=== PATIENT | male | born 1995 | race Caucasian/White ===

== ENCOUNTER 2020-09-07 15:01 | Emergency (ER) | payer OTHER ==
[2020-09-07] MEDS ORDERED: AMOX/CLAV 875 MG/125 MG TABLET PO STA (15:14)
[2020-09-07] MEDS ORDERED: BUFFERED LIDOCAINE 10 ML SYRINGE SUBQ STA (15:14)
--- NOTE | 2020-09-07 15:15 | ED Physician Documentation ---
PD HPI OPHTHO - Stated complaint Stated Complaint: RIGHT EYE SWELLING - Chief complaint Chief Complaint: Heent - History obtained from History obtained from: Patient (He noticed a pimple in the right eyebrow a couple days ago which is since progressed and now the whole area is swollen and slightly painful. No fevers. No visual deficit.) Review of Systems Constitutional: reports: Reviewed and negative Eyes: reports: Reviewed and negative Ears: reports: Reviewed and negative PD PAST MEDICAL HISTORY - Present Medications Home Medications: Ambulatory Orders Medication Instructions Recorded Confirmed Amox/Clav 875/125 [Augmentin] 1 each PO Q12H #14 tablet 09/07/20 - Allergies Allergies/Adverse Reactions: Allergies Allergy/AdvReac Type Severity Reaction Status Date / Time No Known Drug Allergies Allergy Verified 09/07/20 15:10 PD ED PE NORMAL - Vitals Vital signs reviewed: Yes - General General: Alert and oriented X 3, No acute distress - HEENT HEENT: PERRL, EOMI, Other (The right eyebrow is cellulitic with some swelling and edema going down to the top lid. The globe itself appears normal. There is at tender slightly fluctuant area consistent with a small pustule.) - Neck Neck: Supple, no meningeal sign, No bony TTP - Neuro Neuro: Alert and oriented X 3, Normal speech Results - Vitals Vitals: Vital Signs - 24 hr 09/07/20 15:08 Temperature 36.3 C L Heart Rate 82 Respiratory 16 Rate Blood Pressure 135/79 H O2 Saturation 100 Oxygen O2 Source Room air Procedures - Abscess I&D (location) R eyelid Preparation: Alcohol, Lidocaine 1% Incision: Needle aspiration, Purulent drainage Departure - Departure Disposition: Home, Self Care Clinical Impression: Periorbital cellulitis of right eye Condition: Good Record reviewed to determine appropriate education?: Yes Instructions: ED Cellulitis Facial Prescriptions: Amox/Clav 875/125 [Augmentin] 1 each PO Q12H #14 tablet Comments: We are performing a wound culture, the results should be done in 48-72 hours. If antibiotic change is necessary we will call you. Return if worse in the meantime, especially if you develop increased pain, fevers, cannot keep down the medication. Otherwise follow-up with your physician in approximately 2-3 days.
[2020-09-07 15:38] VITALS: BP 151/90
== END 2020-09-07 15:37 | disposition home or self-care (01) ==
LOC: ED 15:01
DX: L03.213 Periorbital cellulitis (principal)
CPT/HCPCS: 10160; 87070; 87205; 99283; A9270

== ENCOUNTER 2021-07-31 08:00 | Outpatient (CLI) | payer OTHER | END 2021-07-31 23:59 | LOC: LAB.N 08:00 | PROVIDERS: ATTEND Nurse Practitioner | DX: R19.7 Diarrhea, unspecified (principal); Z20.822 Contact with and (suspected) exposure to COVID-19 | CPT/HCPCS: 87275; 87276 ==

== ENCOUNTER 2022-04-11 16:54 | Emergency (ER) | payer OTHER ==
[2022-04-11 17:06] VITALS: BP 121/73
--- NOTE | 2022-04-11 17:08 | ED Physician Documentation ---
PD HPI UPPER EXT INJURY - Stated complaint Stated Complaint: ELECTRICAL SHOCK - Chief complaint Chief Complaint: General - History obtained from History obtained from: Patient - History of Present Illness Location: Right, Hand Type of injury: Other (he was holding car battery cable near battery and was checking to see if spark. He was holding part of the metal inadvertently, so felt the shock in his hand. It caused hand to jump away, so only momentary spark. 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 He does not have any pain in forearm, chest/neck at this time, had lasted just few minutes.) Timing - duration: Minutes Timing - details: Abrupt onset, Now resolved Worsened by: No: Moving, Palpating Associated symptoms: Numbness, Tingling (hand and forearm for several minutes after the shock.). No: Weakness Similar symptoms before: Has not had sx before Recently seen: Not recently seen Review of Systems Constitutional: denies: Fever, Chills Nose: denies: Rhinorrhea / runny nose, Congestion Throat: denies: Sore throat Respiratory: denies: Cough Neurologic: denies: Near syncope, Syncope, Altered mental status PD PAST MEDICAL HISTORY - Past Medical History Cardiovascular: None Respiratory: None Endocrine/Autoimmune: None - Past Surgical History Past Surgical History: No - Present Medications Home Medications: Ambulatory Orders Medication Instructions Recorded Confirmed Amox/Clav 875/125 [Augmentin] 1 each PO Q12H #14 tablet 09/07/20 - Allergies Allergies/Adverse Reactions: Allergies Allergy/AdvReac Type Severity Reaction Status Date / Time No Known Drug Allergies Allergy Verified 04/11/22 17:06 - Social History Does the pt smoke?: No Smoking Status: Never smoker Does the pt drink ETOH?: Yes Does the pt have substance abuse?: No - POLST Patient has POLST: No PD ED PE NORMAL - Vitals Vital signs reviewed: Yes - General General: Alert and oriented X 3, No acute distress, Well developed/nourished - Cardiac Cardiac: RRR, No murmur - Respiratory Respiratory: Clear bilaterally - Derm Derm: Normal color, Warm and dry, Other (no signs of electrical aleman nor eschar on hand/fingers. 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 ) Results - Vitals Vitals: Vital Signs - 24 hr 04/11/22 17:02 Temperature 36.0 C L Heart Rate 69 Respiratory 18 Rate Blood Pressure 121/73 O2 Saturation 99 Oxygen O2 Source Room air - EKG (time done) 17:02 Rate: Rate (enter#) (69) Rhythm: NSR [place]: Normal Intervals: Normal MT Ischemia: ST elevation c/w repol. No: ST elevation c/w ischemia Compare to prior EKG: Old EKG unavailable Computer interpretation: Agree with computer PD MEDICAL DECISION MAKING - ED course Complexity details: considered differential (ECG normal for age. No signs of electrical burn on hand. No tenderness in palm/forearm to suggest msucle injury, and would be low risk given brevity of the contact/shock. Did not feel CK/labs warranted. ), d/w patient Departure - Departure Disposition: 01 Home, Self Care Clinical Impression: Electric shock Qualifiers: Encounter type: initial encounter Qualified Code(s): T75.4XXA - Electrocution, initial encounter Condition: Stable Record reviewed to determine appropriate education?: Yes Instructions: Shock Electrical First Aid Follow-Up: GENI Figueroa [Provider Group] Comments: Your EKG is normal. The does not seem to be any muscle injury through the forearm or hand. There may be some soreness and you can use Tylenol ibuprofen if needed. Otherwise you should be okay for normal activity. Discharge Date/Time: 04/11/22 17:34
== END 2022-04-11 17:34 | disposition home or self-care (01) ==
LOC: ED 16:54
DX: T75.4XXA Electrocution, initial encounter (principal); W86.8XXA Exposure to other electric current, initial encounter; Y93.89 Activity, other specified; Y92.89 Other specified places as the place of occurrence of the external cause; Y99.0 Civilian activity done for income or pay
CPT/HCPCS: 93005; 99282; 99283

== ENCOUNTER 2022-07-30 22:23 | Emergency (ER) | payer OTHER ==
[2022-07-30 22:35] VITALS: BP 133/92
--- NOTE | 2022-07-30 22:59 | ED Physician Documentation ---
History of Present Illness - Stated complaint Stated Complaint: HEAD INJ - Chief complaint Chief Complaint: Neuro - History obtained from History obtained from: Patient - Additonal information Additional information: 27yM presents s/p fall off a sled while standing on it and going down a hill. 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 currently endorsing mild frontal VELAZQUEZ and BL neck pain but otherwise asx. no nausea, dizziness, confusion. Review of Systems Eyes: denies: Photophobia GI: denies: Nausea Musculoskeletal: reports: Neck pain Neurologic: reports: Headache, Head injury. denies: LOC PD PAST MEDICAL HISTORY - Past Medical History Cardiovascular: None Respiratory: None Endocrine/Autoimmune: None - Past Surgical History Past Surgical History: No - Present Medications Home Medications: Ambulatory Orders Medication Instructions Recorded Confirmed FLUoxetine [PROzac] 20 mg ORAL DAILY 07/30/22 07/30/22 - Allergies Allergies/Adverse Reactions: Allergies Allergy/AdvReac Type Severity Reaction Status Date / Time menthol [From [employer]] Allergy Rash Verified 07/30/22 22:35 methyl salicylate Allergy Rash Verified 07/30/22 22:35 [From [employer]] - Social History Does the pt smoke?: No Smoking Status: Never smoker Does the pt drink ETOH?: Yes Does the pt have substance abuse?: No - Immunizations Immunizations are current?: Yes - POLST Patient has POLST: No PD ED PE NORMAL - Vitals Vital signs reviewed: Yes - General General: Alert and oriented X 3, No acute distress, Well developed/nourished - HEENT HEENT: Atraumatic, PERRL, EOMI - Neck Neck: No bony TTP - Derm Derm: Normal color, Warm and dry - Neuro Neuro: Alert and oriented X 3, 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 return precautions discussed. Departure - Departure Disposition: 01 Home, Self Care Clinical Impression: Fall Condition: Good Instructions: ED Headache Tension Comments: You were seen in the ED after a fall for head injury. Monitor for signs of concussion and take ibuprofen 600mg every 6 hours for muscle aches and pain. Return to the ED if you have other concerns. Discharge Date/Time: 07/30/22 23:01
== END 2022-07-30 23:01 | disposition home or self-care (01) ==
LOC: ED 22:23
DX: S09.90XA Unspecified injury of head, initial encounter (principal); V00.221A Fall from sled, initial encounter; Y93.23 Activity, snow (alpine) (downhill) skiing, snowboarding, sledding, tobogganing and snow tubing
CPT/HCPCS: 99281; 99282